=== PATIENT | female | born 1975 | race Caucasian/White ===

== ENCOUNTER 2016-07-13 21:42 | Emergency (ER) | payer BC ==
--- NOTE | 2016-07-16 13:01 | ER ---
ADMIT: 07/13/2016 RM/LOC: ER [facility] MR#: [id number] [facility] [id number] [place], [place] [id number] [address] [place] [address] Emergency Room Report SEX: F AGE: 40 : 1975 DATE: 07/13/2016 HISTORY OF PRESENT ILLNESS: The patient is a 40-year-old female, who presents to the emergency room after experiencing the onset of a migraine headache. She says she has blurred vision on the left eye, nausea, vomiting, and photophobia, and this is the typical aura that she gets when she gets headaches. She has not had headaches for a couple of years, so she has not been able to fill her prescription. She is supposed to take Topamax, but she has some Flexeril and ibuprofen at home and she took it at 1830, thinking that this could help her get rid of the headache. PHYSICAL EXAMINATION: VITAL SIGNS: Blood pressure 132/79 with a pulse of 84, respirations 18, temp is 96.8, and 97% on O2 sats. GENERAL: She has a history of migraine headaches. VITAL SIGNS: Within normal limits. HEENT: Photophobia. RESPIRATION: No distress. Physical examination is normal essentially. Given a shot of Toradol and Phenergan for pain control. CLINICAL IMPRESSION: Migraine headache. GABBIE Chapman / Kareem Winn MD / eliol JOB #: [id number] CC: Kareem Winn MD, Attending Physician Michaela Sen MD, Family Physician
== END 2016-07-13 23:05 | disposition home or self-care (01) ==
LOC: ER 21:42
DX: G43.909 Migraine, unspecified, not intractable, without status migrainosus (principal)